=== PATIENT | male | born 1970 | race Caucasian/White ===

== ENCOUNTER 2017-03-26 07:54 | Emergency (ER) | payer BC ==
[2017-03-26 08:07] VITALS: BP 124/75
[2017-03-26] MEDS ORDERED: Cephalexin 500 MG Cap PO ONE (08:22)
--- NOTE | 2017-03-26 08:32 | EDM.PDOC ---
ED HPI GENERAL MEDICAL PROBLEM - General Chief Complaint: Lower Extremity Injury/Pain Stated Complaint: LT KNEE SWOLLEN Time Seen by Provider: 03/26/17 08:05 Source of Information: Reports: Patient, Family (), RN Notes Reviewed History Limitations: Reports: No Limitations - History of Present Illness INITIAL COMMENTS - FREE TEXT/NARRATIVE: The patient states that he developed left knee swelling, erythema, and pain early this morning. 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 No recent fever, but he has had chills. No prior similar symptoms. Left Knee Pain Score (Numeric/FACES): 8 - Related Data Allergies Allergy/AdvReac Type Severity Reaction Status Date / Time No Known Allergies Allergy Verified 03/26/17 08:04 Home Meds: Home Meds Cephalexin [Keflex] 500 mg PO Q12H #14 capsule 03/26/17 [Rx] Multivitamin [Multivitamins] 1 each PO DAILY 03/26/17 [History] Omeprazole Magnesium [Prilosec] 10 mg PO DAILY 03/26/17 [History] Sertraline [Zoloft] 50 mg PO DAILY 03/26/17 [History] Past Medical History Gastrointestinal History: Reports: GERD Psychiatric History: Reports: Depression - Past Surgical History GI Surgical History: Reports: Colonoscopy, EGD Social & Family History - Tobacco Use Smoking Status *Q: Never Smoker - Alcohol Use Alcohol Use History: Yes Alcohol Use Frequency: Socially - Recreational Drug Use Recreational Drug Use: No - Living Situation & Occupation Living situation: Reports: , with Spouse, with Family (3 kids) Occupation: Employed ([employer]) ED ROS GENERAL - Review of Systems Review Of Systems: See Below Constitutional: Reports: No Symptoms HEENT: Reports: No Symptoms Respiratory: Reports: No Symptoms Cardiovascular: Reports: No Symptoms Endocrine: Reports: No Symptoms GI/Abdominal: Reports: No Symptoms : Reports: No Symptoms Musculoskeletal: Reports: No Symptoms Skin: Reports: No Symptoms Neurological: Reports: No Symptoms Psychiatric: Reports: No Symptoms Hematologic/Lymphatic: Reports: No Symptoms Immunologic: Reports: No Symptoms ED EXAM, SKIN/RASH Exam: See Below Exam Limited By: No Limitations General Appearance: Alert, WD/WN, No Apparent Distress Extremities: Other (There is erythema to the anterior and lateral aspects of the knee, but none on the posterior aspect. The area of erythema has mild swelling, and is tender to palpation. The patient can fully extend his knee, but can only flex to about 30 before limitation by pain. No visible effusion. No crepitus or locking within his ROM. No pain with stressing the medial or lateral collateral ligaments. Anterior and posterior drawer signs are negative. Neurovascular status of the left lower 70 is intact.) Course - Vital Signs Last Recorded V/S: Last Vital Signs Temp 36.3 C 03/26/17 08:04 Pulse 92 03/26/17 08:04 Resp 16 03/26/17 08:04 BP 124/75 03/26/17 08:04 Pulse Ox 99 03/26/17 08:04 - Orders/Labs/Meds Meds: Medications Discontinued Medications Generic Name Dose Route Start Last Admin Trade Name Freq PRN Reason Stop Dose Admin Cephalexin 500 mg 03/26/17 08:22 03/26/17 08:38 Keflex PO 03/26/17 08:23 500 mg ONETIME ONE Administration - Re-Assessments/Exams Free Text/Narrative Re-Assessment/Exam: 03/26/17 08:25 The patient appears to have cellulitis involving his anterior left knee. 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 The patient is not at increased risk for MRSA, therefore I will start him on Keflex. I have demarcated the erythematous area with a pen and explained that the erythema will likely spread beyond the pen marilee, but that after 24 hours, it should regress. If it does not , the patient needs to be reevaluated. Departure - Departure Time of Disposition: 08:27 Disposition: Home, Self-Care 01 Condition: Fair Clinical Impression: Cellulitis of left knee - Discharge Information Prescriptions: Cephalexin [Keflex] 500 mg PO Q12H #14 capsule Instructions: Cellulitis, Adult Referrals: Brody Obrien MD [Primary Care Provider] - Forms: ED Department Discharge Additional Instructions: You were seen in the emergency room for pain, swelling, and redness to the front of your left knee. On examination, it appears to have cellulitis, infection of the skin. Take [id number] ibuprofen 2-3 tablets (400-600 mg) every 8 hours, with food, as needed for pain. Applying ice to the knee may help with the pain, as well. You have been started on the antibiotic Keflex. Take 1 tablet every 12 hours, as prescribed. Finish the entire prescription unless told otherwise by a doctor. The area of redness has been marked on your skin with a pen. You should expect that the redness will go beyond the pen marilee for about 24 hours, after which it should recede. If it does not recede, you need to be reevaluated. If any other problems, please do not hesitate to return to the ER.
== END 2017-03-26 08:39 | disposition home or self-care (01) ==
LOC: JD.ED 07:54
DX: L03.116 Cellulitis of left lower limb (principal); F32.9 Major depressive disorder, single episode, unspecified; Z79.899 Other long term (current) drug therapy; K21.9 Gastro-esophageal reflux disease without esophagitis
CPT/HCPCS: 99283; A9270

== ENCOUNTER 2017-03-26 20:30 | Emergency (ER) | payer BC ==
[2017-03-26] MEDS ORDERED: Sodium Chloride 0.9% 10 ML Syringe FLUSH PRN (21:22)
[2017-03-26] MEDS ORDERED: HYDROmorphone 1 MG/ML Syringe IVPUSH ONE (21:23)
[2017-03-26] MEDS ORDERED: Clindamycin Phosphate 600 MG in Sodium Chloride 0.9% 100 ML IV ONE (22:39)
--- NOTE | 2017-03-26 23:38 | EDM.PDOC ---
ED HPI GENERAL MEDICAL PROBLEM - General Chief Complaint: Skin Complaint Stated Complaint: KNEE Time Seen by Provider: 03/26/17 21:27 Source of Information: Reports: Patient History Limitations: Reports: No Limitations - History of Present Illness INITIAL COMMENTS - FREE TEXT/NARRATIVE: 46-year-old male presents for evaluation treatment of left lower leg cellulitis. Patient reports that the cellulitis began yesterday. He was seen at the ER earlier today. He is prescribed Keflex and instructed to take Tylenol and Motrin. A line was drawn around the area of erythema. Patient reports that after leaving the ER he went to a wedding in [place]. He has had 2 doses of Keflex as far. He states he has been taking Tylenol and ibuprofen but the pain has significantly increased. He states that he is experiencing severe pain with walking on it thus his and him come to the ER. Denies any fevers, numbness , tingling, nausea or vomiting. Patient lives in [place]. Patient is not a diabetic and has no known immunocompromised conditions. 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 Location: Reports: Lower Extremity, Left Treatments [employer]: Reports: Other (see below) Other Treatments [employer]: keflex, advil at 1730 left knee Pain Score (Numeric/FACES): 7 - Related Data Allergies Allergy/AdvReac Type Severity Reaction Status Date / Time No Known Allergies Allergy Verified 03/26/17 20:48 Home Meds: Home Meds Cephalexin [Keflex] 500 mg PO Q12H #14 capsule 03/26/17 [Rx] Clindamycin HCl [Cleocin HCl] 300 mg PO Q6HR #40 capsule 03/26/17 [Rx] Multivitamin [Multivitamins] 1 each PO DAILY 03/26/17 [History] Omeprazole Magnesium [Prilosec] 10 mg PO DAILY 03/26/17 [History] Sertraline [Zoloft] 50 mg PO DAILY 03/26/17 [History] Past Medical History Gastrointestinal History: Reports: GERD Psychiatric History: Reports: Depression - Past Surgical History GI Surgical History: Reports: Colonoscopy, EGD Social & Family History - Family History Family Medical History: Noncontributory - Tobacco Use Smoking Status *Q: Current Some Day Smoker Years of Tobacco use: 10 Packs/Tins Daily: 0.2 - Caffeine Use Caffeine Use: Reports: Coffee - Recreational Drug Use Recreational Drug Use: No - Living Situation & Occupation Living situation: Reports: , with Spouse, with Family (3 kids) Occupation: Employed ([employer]) ED ROS GENERAL - Review of Systems Review Of Systems: See Below Constitutional: Denies: Fever GI/Abdominal: Denies: Nausea, Vomiting Musculoskeletal: Reports: Leg Pain (left lower leg) Skin: Reports: Erythema (left lower leg) Neurological: Denies: Numbness, Tingling ED EXAM, SKIN/RASH Exam: See Below Exam Limited By: No Limitations General Appearance: Alert, WD/WN, No Apparent Distress Throat/Mouth: Normal Inspection, Normal Voice, No Airway Compromise Respiratory/Chest: No Respiratory Distress, Lungs Clear, Normal Breath Sounds Cardiovascular: Normal Peripheral Pulses, Regular Rate, Rhythm, No Murmur Peripheral Pulses: 3+: Posterior Tibial (L), Posterior Tibial (R), Dorsalis Pedis (L), Dorsalis Pedis (R) Neurological: Alert, Oriented, Normal Cognition Skin: Warm, Dry, Erythema (cellulitis has extended beyond the markings drawen earlier in the ER. The cellulitis now extends from the left ankle to the left knee with associated tenderness) Course - Vital Signs Last Recorded V/S: Last Vital Signs Temp 36.7 C 03/26/17 20:43 Pulse 106 H 03/27/17 00:15 Resp 18 03/26/17 20:43 BP 117/74 03/27/17 00:15 Pulse Ox 95 03/27/17 00:15 - Orders/Labs/Meds Labs: Laboratory Tests 03/26/17 03/26/17 Range/Units 21:30 21:30 WBC 11.55 H (4.23-9.07) K/mm3 RBC 4.32 L (4.63-6.08) M/mm3 Hgb 13.4 L (13.7-17.5) gm/L Hct 39.1 L (40.1-51.0) % MCV 90.5 (79.0-92.2) fl MCH 31.0 (25.7-32.2) pg MCHC 34.3 (32.2-35.5) g/dl RDW Std Deviation 45.1 H (35.1-43.9) fL Plt Count 168 (163-337) K/mm3 MPV 9.8 (9.4-12.3) fl Neutrophils % (Manual) 71 H (40-60) % Band Neutrophils % 17 H (0-10) % Lymphocytes % (Manual) 6 L (20-40) % Atypical Lymphs % 0 % Monocytes % (Manual) 6 (2-10) % Eosinophils % (Manual) 0 L (0.8-7.0) % Basophils % (Manual) 0 L (0.2-1.2) Toxic Granulation Moderate Dohle Bodies Few Platelet Estimate Adequate Plt Morphology Comment Normal Polychromasia Few RBC Morph Comment Not Reportable Sodium 138 (136-145) mEq/L Potassium 3.6 (3.5-5.1) mEq/L Chloride 104 (98-107) mEq/L Carbon Dioxide 26 (21-32) mEq/L Anion Gap 11.6 (5-15) BUN 14 (7-18) mg/dL Creatinine 1.2 (0.7-1.3) mg/dL Est Cr Clr Drug Dosing TNP Estimated GFR (MDRD) > 60 (>60) mL/min BUN/Creatinine Ratio 11.7 L (14-18) Glucose 120 H (74-106) mg/dL Calcium 8.6 (8.5-10.1) mg/dL Total Bilirubin 0.6 (0.2-1.0) mg/dL AST 19 (15-37) U/L ALT 51 (16-63) U/L Alkaline Phosphatase 56 (46-116) U/L C-Reactive Protein 26.8 H* (<1.0) mg/dL Total Protein 8.1 (6.4-8.2) g/dl Albumin 3.5 (3.4-5.0) g/dl Globulin 4.6 gm/dL Albumin/Globulin Ratio 0.8 L (1-2) Meds: Medications Discontinued Medications Generic Name Dose Route Start Last Admin Trade Name Freq PRN Reason Stop Dose Admin Hydromorphone HCl 1 mg 03/26/17 21:23 03/26/17 21:39 Dilaudid IVPUSH 03/26/17 21:24 1 mg ONETIME ONE Administration Hydromorphone HCl 0.5 mg 03/26/17 23:57 03/27/17 00:06 Dilaudid IVPUSH 03/26/17 23:58 0.5 mg ONETIME ONE Administration Clindamycin Phosphate 600 mg/ 104 mls @ 100 mls/hr 03/26/17 22:39 03/26/17 22 :49 Sodium Chloride IV 03/26/17 23:41 100 mls/hr ONETIME ONE Administration Sodium Chloride 10 ml 03/26/17 21:22 03/26/17 21:40 Saline Flush FLUSH 10 ml ASDIRECTED PRN Administration Keep Vein Open - Re-Assessments/Exams Free Text/Narrative Re-Assessment/Exam: 03/26/17 23:21 Labs returned. WBC is 11.55 with a shift (17% bands), hgb is 13.4 and plts are 168 CRP is elevated at 26.8 Sodium is 138, potassium is 3.6 and chloride is 104. Glucose is 120. Patient had good pain relief with the 1mg IV dilaudid. I reviewed the lab results with the patient. The plan will be add some clindamycin onto his antibiotics and I will give him some Percocet for pain. We discussed admission given that he does live in [place]. I feel it would be appropriate to stay at the hospital given his distance to the hospital and his failure of treatment. He feels comfortable going home with close follow-up. Patient elects to go home tonight Will continue to receive the clindamycin and discharge him once complete. 03/26/17 23:52 Antibiotics are in. Will give and additional 0.5mg IV dilaudid for pain cnotrol prior to discharge. Discharge instructions as documented. Instructed to return to the ER immediately if symptoms change or worsen. Departure - Departure Time of Disposition: 23:51 Disposition: Home, Self-Care 01 Condition: Fair Clinical Impression: Cellulitis of left knee - Discharge Information Prescriptions: Clindamycin HCl [Cleocin HCl] 300 mg PO Q6HR #40 capsule Instructions: Cellulitis, Adult Referrals: Brody Obrien MD [Primary Care Provider] - Forms: ED Department Discharge Additional Instructions: Prescription for Percocet 5-325 one to 2 tablets 4-6 hours as needed for severe pain #20 given through [facility]. You were given medication in the ER that can affect your ability to drive and operate machinery. No driving or operating machinery within 12 hours of taking narcotic pain medications. Rest. Elevate the leg. Take [id number] ibuprofen for pain. Do not take more than 3200 mg of ibuprofen during 1 day. Percocet 1-2 tabs every 4-6 hours as needed for severe pain. No driving or operating machinery within 12 hours of taking the Percocet. Percocet can be habit-forming, I recommend you take as few as needed to control your pain. Please follow-up with your primary care provider on Tuesday or Tuesday of this week for recheck. Continue the Keflex as prescribed. Clindamycin 1 tab every 6 hours for 10 days. You may start this prescription tomorrow as you were given a dose here in the ER tonight. Please return to the ER if your symptoms change or worsen.
[2017-03-26] MEDS ORDERED: HYDROmorphone 0.5 MG/0.5 ML Syringe IVPUSH ONE (23:57)
[2017-03-27 01:14] VITALS: BP 117/74
== END 2017-03-27 00:15 | disposition home or self-care (01) ==
LOC: JD.ED 20:30
DX: L03.116 Cellulitis of left lower limb (principal); K21.9 Gastro-esophageal reflux disease without esophagitis; F32.9 Major depressive disorder, single episode, unspecified; F17.210 Nicotine dependence, cigarettes, uncomplicated; Z79.899 Other long term (current) drug therapy
CPT/HCPCS: 36415; 80053; 85025; 86140; 96365; 96375; 96376; 99283; J1170; J7030; J7050; A9270-GY